=== PATIENT | female | born 1980 | race Caucasian/White ===

== ENCOUNTER 2023-03-18 02:12 | Observation (INO) | payer BC, SELFPAY ==
[2023-03-18] MEDS ORDERED: Ondansetron PF 4 MG/2 ML Vial IVP PRN (02:42)
[2023-03-18] MEDS ORDERED: Morphine 4 MG/ML VIAL SLOW IVP PRN ×2 (02:46→07:30)
[2023-03-18] MEDS ORDERED: Sodium Chloride 0.9% 1,000 ML IV SCH (03:00)
[2023-03-18] MEDS: Potassium Chloride 20 MEQ in Premix Bag 1 BAG IVPB SCH ×2 (04:26→07:23)
[2023-03-18] MEDS ORDERED: Morphine 4 MG/ML VIAL SLOW IVP SCH (06:00)
[2023-03-18 06:20] LABS: #Basophils 0.1 10x3/uL (0.0-0.2); #Eosinphils 0.1 10x3/uL (0.0-0.5); #Monocytes 0.8 10x3/uL (0.0-1.1); #Neutrophils 6.9 10x3/uL (1.5-8.4); %Basophils 0.5 % (0.0-2.0); %Eosinophils 1.1 % (0.0-6.0); %Neutrophils 67.9 % (40.0-75.0); Hemoglobin 11.4 g/dL (12.0-15.5); Mean Corpuscular HGB CONC 33.6 g/dL (32.0-36.0); Mean Corpuscular Hemoglobin 31.2 pg (27.0-33.0); Mean Corpuscular Volume 92.9 fl (81.6-98.3); Mean Platelet Volume 9.3 fl (7.4-10.4); Platelet Count 250 10x3/uL (150-450); RBC Distribution Width 13.4 % (11.5-14.5); Red Blood Cell (RBC) Count 3.65 10x6/uL (3.90-5.03); White Blood Cell (WBC) Count 10.2 10x3/uL (3.5-10.5)
[2023-03-18 06:35] LABS: Anion Gap 12 mmol/L (10-20); BUN (Urea Nitrogen) 12 mg/dL (7.0-18.7); Calc. Creatinine Clearance 0 mL/min (70-130); Calcium 9.3 mg/dL (7.8-10.44); Carbon Dioxide 28 mmol/L (22-29); Chloride 100 mmol/L (98-107); Estimated GFR 102; Glucose 97 mg/dL (70-105); Potassium 3.4 mmol/L (3.5-5.1); Sodium 137 mmol/L (136-145)
[2023-03-18] MEDS ORDERED: Acetaminophen 500 MG TAB ONE (08:45)
[2023-03-18] MEDS ORDERED: Lidocaine 1% PF 5 ML VIAL ONE (08:58)
[2023-03-18] MEDS ORDERED: PROPOFOL 40 ML ONE (08:58)
[2023-03-18] MEDS ORDERED: fentaNYL 50 mcg/mL 1 mL Vial ONE ×2 (08:58→10:20)
[2023-03-18] MEDS ORDERED: Dexamethasone 4 mg/ml Vial ONE (08:58)
[2023-03-18] MEDS ORDERED: Rocuronium Bromide 10 MG/ML (10ML VIAL) ONE (08:58)
[2023-03-18] MEDS ORDERED: Ondansetron PF 4 MG/2 ML Vial ONE ×2 (08:58→10:37)
[2023-03-18] MEDS ORDERED: Dexamethasone 20 MG/5 ML VIAL ONE (08:59)
[2023-03-18] MEDS ORDERED: Lidocaine 2% PF 5 ML VIAL ONE (08:59)
[2023-03-18] MEDS ORDERED: Bupivacaine HCl 0.5%/Epinephrine 1:200,000/PF 30 ml Vial ONE (09:33)
[2023-03-18] MEDS ORDERED: Glycopyrrolate 0.2 MG/ML 5 ML SYRINGE ONE (09:53)
[2023-03-18] MEDS ORDERED: Meperidine HCl/PF 25 MG/ML VIAL ONE (10:09)
[2023-03-18] MEDS ORDERED: Ibuprofen 800 MG TAB PO PRN (10:29)
[2023-03-18] MEDS ORDERED: HYDROcodone/Acetaminophen 5/325 mg Tablet PO PRN (10:30)
[2023-03-18] MEDS ORDERED: fentaNYL 50 mcg/mL 1 mL Vial SLOW IVP PRN (10:31)
[2023-03-18 11:29] VITALS: TEMP 98.2
[2023-03-18] MEDS: HYDROcodone/Acetaminophen 5/325 mg Tablet PO PRN ×2 (12:05→15:42)
[2023-03-18 13:24] VITALS: BP 121/72
== END 2023-03-18 15:46 | disposition home or self-care (01) ==
LOC: CSHPED 02:12
PROVIDERS: ADMIT Obstetrics & Gynecology; ATTEND Obstetrics & Gynecology
PROC: 10T24ZZ Resection of Products of Conception, Ectopic, Percutaneous Endoscopic Approach (ICD-10-PCS; principal; 2023-03-18)
PROC: 0UT64ZZ Resection of Left Fallopian Tube, Percutaneous Endoscopic Approach (ICD-10-PCS; 2023-03-18)
DX: O00.90 Unspecified ectopic pregnancy without intrauterine pregnancy (principal); O10.911 Unspecified pre-existing hypertension complicating pregnancy, first trimester; O99.281 Endocrine, nutritional and metabolic diseases complicating pregnancy, first trimester; E87.6 Hypokalemia; O72.2 Delayed and secondary postpartum hemorrhage; Z3A.01 Less than 8 weeks gestation of pregnancy; Z79.899 Other long term (current) drug therapy
CPT/HCPCS: 36415; 76856; 80048; 85025; 86850; 86900; 86901; 88305; 96365; 96366; 96375; 96376; G0378; J1100; J2001; J2175; J2270; J2405; J2704; J3010; J3480; J7050